=== PATIENT | female | born 1975 | race Two or more races ===

== ENCOUNTER 2019-06-06 07:45 | Outpatient (CLI) | payer OTHER | END 2019-06-06 07:53 | disposition home or self-care (01) | LOC: MAMO-SONO 07:45 | DX: Z12.31 Encounter for screening mammogram for malignant neoplasm of breast (principal); Z87.898 Personal history of other specified conditions ==

== ENCOUNTER → 2020-07-23 | Outpatient (CLI) | payer OTHER | END | disposition home or self-care (01) | LOC: MAMO-SONO 07-13 10:15 | PROVIDERS: ATTEND Obstetrics & Gynecology Maternal & Fetal Medicine | DX: Z12.31 Encounter for screening mammogram for malignant neoplasm of breast (principal); N64.4 Mastodynia; N60.11 Diffuse cystic mastopathy of right breast; N63.10 Unspecified lump in the right breast, unspecified quadrant; N63.20 Unspecified lump in the left breast, unspecified quadrant ==

== ENCOUNTER 2020-11-26 10:38 | Outpatient (CLI) | payer OTHER | END 2020-11-26 11:04 | disposition home or self-care (01) | LOC: RAD 10:38 | PROVIDERS: ATTEND Physical Medicine & Rehabilitation | DX: M54.2 Cervicalgia (principal); M54.6 Pain in thoracic spine; M54.5 Low back pain ==

== ENCOUNTER 2021-05-13 10:16 | Outpatient (CLI) | payer OTHER | END 2021-05-13 10:32 | disposition home or self-care (01) | LOC: RAD 10:16 | PROVIDERS: ATTEND Physical Medicine & Rehabilitation | DX: M25.474 Effusion, right foot (principal); M77.31 Calcaneal spur, right foot; M77.32 Calcaneal spur, left foot; S96.911A Strain of unspecified muscle and tendon at ankle and foot level, right foot, initial encounter ==

== ENCOUNTER 2021-09-13 13:03 | Outpatient (CLI) | payer OTHER | END 2021-09-13 14:00 | disposition home or self-care (01) | LOC: MAMO-SONO 13:03 | PROVIDERS: ATTEND Obstetrics & Gynecology Maternal & Fetal Medicine | DX: N60.11 Diffuse cystic mastopathy of right breast (principal); Z12.31 Encounter for screening mammogram for malignant neoplasm of breast; N64.4 Mastodynia ==

== ENCOUNTER 2023-09-15 12:10 | Outpatient (CLI) | payer OTHER | END 2023-09-15 12:35 | disposition home or self-care (01) | LOC: MAMO-SONO 12:10 | PROVIDERS: ATTEND Obstetrics & Gynecology Maternal & Fetal Medicine | DX: Z12.31 Encounter for screening mammogram for malignant neoplasm of breast (principal); N63.0 Unspecified lump in unspecified breast; N64.4 Mastodynia; N60.11 Diffuse cystic mastopathy of right breast ==